=== PATIENT | male | born 1960 | race Caucasian/White ===

== ENCOUNTER → 2021-01-27 | Outpatient (CLI) | payer OTHER ==
--- NOTE | 2021-01-27 17:01 | Diagnostic Imaging Report ---
INDICATION: Pneumonia with cough. EXAMINATION: Chest, PA and lateral views. FINDINGS: The lungs are well-aerated and clear. The heart is not enlarged. No pulmonary edema or hilar adenopathy. No pneumothorax or pleural effusion. No bony abnormalities. IMPRESSION: Normal chest. Dictated by: Dictated on workstation # [id number]
== END ==
LOC: LAB FS 11:08
PROVIDERS: ATTEND Emergency Medicine
DX: J12.9 Viral pneumonia, unspecified (principal)
CPT/HCPCS: 71046

== ENCOUNTER 2021-05-18 22:42 | Emergency (ER) | payer OTHER ==
[~2021-05-18] VITALS: Ht 178 cm; Wt 111.0 kg
--- OUTSIDE RECORDS SUMMARY | 2021-05-18 22:46 | XMS REPORT | Clinical Summary ---
Author Author [facility] Organization [facility] Address Unknown Phone Unavailable Care Team Providers Care Bottom Sander Name Role Phone Jonn Mcgarry MD PCP Allergies No known active allergies Medications End Date Status Medication Sig Dispensed Refills Start Date Active ALPRAZolam (XANAX) 2 MG Take 1 mg by 0 tablet mouth 3 (three) times a day. Active atenolol (TENORMIN) 25 MG Take 25 mg by 0 tablet mouth 2 (two) times a day. Active montelukast (SINGULAIR) Take 10 mg by 0 10 mg tablet mouth daily. Active budesonide-formoteroL Inhale 1 puff 0 (SYMBICORT) 160-4.5 2 (two) times mcg/actuation inhaler a day. Active fluticasone propionate Use 2 sprays 0 (FLONASE) 50 in each mcg/actuation nasal spray nostril daily. Active ascorbic acid (VITAMIN C) Take 500 mg 0 500 mg tablet by mouth 2 (two) times a day. Active cholecalciferol, vitamin Take 10,000 0 D3, (VITAMIN D3) 125 mcg Units by (5,000 unit) Tab mouth 2 (two) times a day. Active Problems Problem Noted Date Hypoxemia 02/02/2021 Last Assessment & Plan: Formatting of this note might be differ ent from the original. supportive care wean O2 as tolerated Pneumonia due to COVID-19 virus 02/02/2021 Last Assessment & Plan: Formatting of this note might be differ ent from the original. - started decadron / remdesivir 02/02 - does not qualify for tocilizumab - encouraged proning - on oxygen increase requirement with a mbulation up to 7 L 02/08/2020 - CTA chest negative for PE - prn inhalers - continue monitoring - pt w/ multiple risk factors and remains at risk for acute worsening and resp failure 2/2 co vid pna - Once O2 requirement trending down can likely dc on home O2 after exercise oximetry Anxiety 02/02/2021 Last Assessment & Plan: Formatting of this note might be differ ent from the original. - cont home xanax - lower dose due to r yeni status, follow -Continue current as needed dosing Syncope 10/05/2016 Essential hypertension 10/05/2016 Last Assessment & Plan: Formatting of this note might be differ ent from the original. - cont home atenolol Family History Medical History Relation Name Comments ALS Father Colon cancer Father Heart disease Mother Relation Name Status Comments Father Mother Alive Social History Date Tobacco Use Types Packs/Day Years Used Never Smoker Smokeless Tobacco: Never Used Comments Alcohol Use Standard Drinks/Week No 0 (1 standard drink = 0.6 o z pure alcohol) Sex Assigned at Date Recorded Not on file Last Filed Vital Signs Reading Time Taken Comments Vital Sign 128/75 02/09/2021 11:04 AM CDT Blood Pressure 55 02/09/2021 11:04 AM CDT Pulse 36.7 C (98.1 F) 02/09/2021 11:04 AM CDT Temperature 18 02/09/2021 7:54 AM CDT Respiratory Rate 93% 02/09/2021 11:04 AM CDT Oxygen Saturation - - Inhaled Oxygen Concentration 113.5 kg (250 lb 3.6 oz) 02/09/2021 6:00 AM CDT Weight 177.8 cm (5' 10") 02/02/2021 7:42 PM CDT Height 35.9 02/02/2021 7:42 PM CDT Body Mass Index Plan of Treatment Health Maintenance Due Date Last Done Comments Hepatitis C Screen 1960 Td/Tdap# 1960 COVID-19 Vaccine (1) 1971 Colorectal Screening via 2009 Colonoscopy Zoster Vaccine# (1 of 2) 2009 Influenza Vaccine (#1) 2021 Pneumococcal Vaccine: Aged Out No longer eligib le based on patient's age to Pediatrics (0 to 5 Years) complete this topic and At-Risk Patients (6 to 64 Years) Results Not on filefrom Last 3 Months Insurance Type Payer Benefit Subscriber ID Effective Phone Address Plan / Dates Group [facility]ERCIAL[facility]CONTRACTED [facility] [id number] 2020-P [address] COMM[address]CIAL resent [id number] [place] [address] [place] (Home) [place] [address] [address] Personal/F Self [address] [place] (Home) [place], [place] [address] [address] [place] Personal/F Self [address] [place] (Home) [place], [place] [address] Advance Directives For more information, please contact: [phone] 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
[2021-05-18 23:24] LABS: BILIRUBIN,URINE NEGATIVE (NEGATIVE); CLARITY,URINE CLEAR; COLOR,URINE YELLOW; GLUCOSE, URINE (UA) NEGATIVE (NEGATIVE); KETONES,URINE NEGATIVE (NEGATIVE); LEUKOCYTE ESTERASE ,URINE NEGATIVE (NEGATIVE); NITRITE,URINE NEGATIVE (NEGATIVE); PROTEIN,URINE 2+ (NEGATIVE)
[2021-05-18 23:33] LABS: BACTERIA,URINE TRACE /HPF; RBC,URINE >100 /HPF; SQUAMOUS EPITHELIAL CELL,UR 0-2 /HPF; WBC,URINE 0-2 /HPF
--- NOTE | 2021-05-18 23:38 | ED GU-Male ---
General Chief Complaint: - Reproductive Stated Complaint: UNABLE TO URINATE Nursing Triage Note: PT AMB TO ED WITH C/O DIFFICULTY URINATING. PT REPORTS HE HAS HAD BURNING WHILE URINATING FOR THE LAST WEEK OR TWO, AND HAS BEEN UNABLE TO EMPTY HIS BLADDER SINCE 1400 TODAY. REPORTS PAIN /10 AND DESCRIBES IT PRESSURE IN BLADDER. REPORTS HAVING HX OF ENLARGED PROSTATE IN HIS LATE TEENS/EARLY 20S. Source: patient Exam Limitations: no limitations History of Present Illness Date Seen by Provider: May 18, 2021 Time Seen by Provider: 23:10 Initial Comments Patient ER by private conveyance from home at [place] with chief complaint that since about 2 in the afternoon he has had difficulty urinating or emptying his bladder. He gets small amounts of urine out. It has been progressively getting worse for the past week or 2. He has a history of prostatitis in his early 20s. He does not take Flomax or similar medications for prostate now. He does not follow with urologist. No uroscopy. No blood clots. No fevers chills nausea vomiting. Fullness and pressure in his suprapubic region Allergies and Home Medications Allergies Coded Allergies: No Known Drug Allergies (Unverified , 05/18/21) Patient Home Medication List Home Medication List Reviewed: Yes Review of Systems Review of Systems Constitutional: No chills, No fever EENTM: No ear discharge, No ear pain Respiratory: No cough, No short of breath Cardiovascular: No chest pain, No edema Gastrointestinal: see HPI, abdominal pain; No constipation, No diarrhea, No nausea Genitourinary: see HPI, frequency, pain Musculoskeletal: No back pain, No joint pain All Other Systemes Reviewed Negative Unless Noted: Yes Past Ldhlngn-Ucdvof-Nothjf Hx Patient Social History Tobacco Use?: No Use of E-Cig and/or Vaping dev: No Substance use?: No Pt feels they are or have been: No Immunizations Up To Date Influenza Vaccine Up-to-Date: No; Not Current First/Initial COVID19 Vaccinat: N/A Past Medical History Surgery/Hospitalization HX: HTN Physical Exam Vital Signs Vital Signs - First Documented 05/18/21 22:55 Temp 36.1 Pulse 75 Resp 18 B/P (MAP) 135/96 (109) Pulse Ox 97 O2 Delivery Room Air Capillary Refill : Less Than 3 Seconds Height, Weight, BMI Height: '" Weight: lbs. oz. kg; 35.00 BMI Method: General Appearance: WD/WN, mild distress HEENT: PERRL/EOMI, pharynx normal Neck: full range of motion, normal inspection Cardiovascular: normal peripheral pulses, regular rate, rhythm Respiratory: lungs clear, no respiratory distress, no accessory muscle use Gastrointestinal: normal bowel sounds, soft, tenderness (Mild suprapubic distention and fullness.) Extremities: normal range of motion, non-tender, normal capillary refill Neurologic/Psychiatric: alert, normal mood/affect, oriented x 3 Skin: normal color, warm/dry Progress/Results/Core Measures Suspected Sepsis SIRS Temperature: Pulse: 75 Respiratory Rate: 18 Laboratory Tests 05/19/21 00:05: White Blood Count 11.4H Blood Pressure 135 /96 Mean: 109 Laboratory Tests 05/19/21 00:05: Creatinine 1.25, Platelet Count 243 Results/Orders Lab Results Laboratory Tests Test 05/18/21 23:00 05/19/21 00:05 Range/Units Urine Color YELLOW Urine Clarity CLEAR Urine pH 6.0 5-9 Urine Specific Rhodes >=1.030 1.016-1.022 Urine Protein 2+ H NEGATIVE Urine Glucose (UA) NEGATIVE NEGATIVE Urine Ketones NEGATIVE NEGATIVE Urine Nitrite NEGATIVE NEGATIVE Urine Bilirubin NEGATIVE NEGATIVE Urine Urobilinogen 0.2 < = 1.0 MG/DL Urine Leukocyte Esterase NEGATIVE NEGATIVE Urine RBC (Auto) 3+ H NEGATIVE Urine RBC >100 H /HPF Urine WBC 0-2 /HPF Urine Squamous Epithelial Cells 0-2 /HPF Urine Crystals NONE /LPF Urine Bacteria TRACE /HPF Urine Casts NONE /LPF Urine Mucus NEGATIVE /LPF Urine Culture Indicated NO White Blood Count 11.4 H 4.3-11.0 10^3/uL Red Blood Count 5.06 4.30-5.52 10^6/uL Hemoglobin 14.9 13.3-17.7 g/dL Hematocrit 43 40-54 % Mean Corpuscular Volume 85 80-99 fL Mean Corpuscular Hemoglobin 29 25-34 pg Mean Corpuscular Hemoglobin Concent 35 32-36 g/dL Red Cell Distribution Width 13.2 10.0-14.5 % Platelet Count 243 130-400 10^3/uL Mean Platelet Volume 8.5 L 9.0-12.2 fL Immature Granulocyte % (Auto) 0 % Neutrophils (%) (Auto) 66 42-75 % Lymphocytes (%) (Auto) 23 12-44 % Monocytes (%) (Auto) 8 0-12 % Eosinophils (%) (Auto) 2 0-10 % Basophils (%) (Auto) 1 0-10 % Neutrophils # (Auto) 7.6 1.8-7.8 10^3/uL Lymphocytes # (Auto) 2.6 1.0-4.0 10^3/uL Monocytes # (Auto) 0.9 0.0-1.0 10^3/uL Eosinophils # (Auto) 0.2 0.0-0.3 10^3/uL Basophils # (Auto) 0.1 0.0-0.1 10^3/uL Immature Granulocyte # (Auto) 0.0 0.0-0.1 10^3/uL Sodium Level 138 135-145 MMOL/L Potassium Level 3.7 3.6-5.0 MMOL/L Chloride Level 103 98-107 MMOL/L Carbon Dioxide Level 25 21-32 MMOL/L Anion Gap 10 5-14 MMOL/L Blood Urea Nitrogen 17 7-18 MG/DL Creatinine 1.25 0.60-1.30 MG/DL Estimat Glomerular Filtration Rate 59 BUN/Creatinine Ratio 14 Glucose Level 112 H 70-105 MG/DL Calcium Level 9.7 8.5-10.1 MG/DL My Orders Orders - SHAYLEE OLGUIN Ua Culture If Indicated (05/18/21 23:13) Catheter(Urinary) Insert & Ass 03,15 (05/18/21 23:13) Bladder Scan (05/18/21 23:47) Ceftriaxone 1 Gm Pre-Mix (Rocephin 1 Gm (05/19/21 00:00) Cbc With Automated Diff (05/19/21 00:00) Basic Metabolic Panel (05/19/21 00:00) Medications Given in ED Current Medications Medications Dose Ordered Sig/Soha Route Start Time Stop Time Status Last Admin Dose Admin Ceftriaxone Sodium/Dextrose 50 ml @ 100 mls/hr ONCE ONCE IV 05/19/21 00:00 05/19/21 00:29 DC 05/19/21 00:10 100 MLS/HR Vital Signs/I&O 05/18/21 22:55 Temp 36.1 Pulse 75 Resp 18 B/P (MAP) 135/96 (109) Pulse Ox 97 O2 Delivery Room Air Capillary Refill : Less Than 3 Seconds Blood Pressure Mean: 109 Progress Note #1: Time: 23:37 Progress Note We will start the patient on Flomax put a Xie catheter in and get a urine sample back. We will treat with antibiotics if indicated. Have him follow-up with urology in 1 to 2 weeks Progress Note #2: Time: 01:01 Progress Note 20 cc of urine returned. So we collected some labs. Kidney function seems okay. Gave him some fluids and Rocephin as well as a dose of Flomax. Discussed taking the Xie catheter out and treating prostatitis and the patient is okay with this plan. Return precautions were given. Follow-up with urology Departure Impression Primary Impression: Urinary retention Additional Impression: Prostatitis Qualified Codes: N41.0 - Acute prostatitis Disposition: HOME, SELF-CARE Condition: Stable Departure-Patient Inst. Decision time for Depature: 00:53 Referrals: ERNESTO RASHID DO (PCP/Family) Primary Care Physician NEHA SALMON MD Patient Instructions: Urinary Retention (DC), How to Care for Your Xie Catheter, Male Add. Discharge Instructions: Drink plenty of fluids to help flush your kidneys out. Call Dr. Salmon in the morning and request a follow-up appointment in the next 1 to 2 weeks. Flomax 1 capsule at nighttime. Cefdinir 300 mg Twice a day for 10 days. All discharge instructions reviewed with patient and/or family. Voiced understanding. Scripts Tamsulosin HCl (Flomax) 0.4 Mg Cap 0.4 MG PO HS, #14 CAP 0 Refills Prov: SHAYLEE OLGUIN 05/19/21 Cefdinir (Cefdinir) 300 Mg Capsule 300 MG PO BID for 10 Days, #20 CAP 0 Refills Prov: SHAYLEE OLGUIN 05/19/21 Copy Copies To 1: ERNESTO RASHID DO; NEHA SALMON MD, TITUS J May 18, 2021 23:38
[2021-05-19] MEDS ORDERED: cefTRIAXone 1 GM PRE-MIX 50 ML IV ONE
[2021-05-19 00:18] LABS: BASOPHILS # (AUTO) 0.1 10^3/uL (0.0-0.1); BASOPHILS % (AUTO) 1 % (0-10); EOSINOPHILS # (AUTO) 0.2 10^3/uL (0.0-0.3); EOSINOPHILS % (AUTO) 2 % (0-10); HEMATOCRIT 43 % (40-54); HEMOGLOBIN 14.9 g/dL (13.3-17.7); LYMPHOCYTES # (AUTO) 2.6 10^3/uL (1.0-4.0); LYMPHOCYTES % (AUTO) 23 % (12-44); MEAN CORPUSCULAR HEMOGLOBIN 29 pg (25-34); MEAN CORPUSCULAR HGB CONC 35 g/dL (32-36); MEAN CORPUSCULAR VOLUME 85 fL (80-99); MEAN PLATELET VOLUME 8.5 fL (9.0-12.2); MONOCYTES # (AUTO) 0.9 10^3/uL (0.0-1.0); MONOCYTES % (AUTO) 8 % (0-12); NEUTROPHILS # (AUTO) 7.6 10^3/uL (1.8-7.8); NEUTROPHILS % (AUTO) 66 % (42-75); PLATELET COUNT 243 10^3/uL (130-400); WHITE BLOOD COUNT 11.4 10^3/uL (4.3-11.0)
[2021-05-19 00:33] LABS: POTASSIUM 3.7 MMOL/L (3.6-5.0)
[2021-05-19 00:34] LABS: CALCIUM 9.7 MG/DL (8.5-10.1)
[2021-05-19 00:39] LABS: CREATININE SERUM 1.25 MG/DL (0.60-1.30)
[2021-05-19] MEDS ORDERED: CEFD300C3 PO (01:00)
[2021-05-19] MEDS ORDERED: TMSL.4C PO (01:00)
[2021-05-19] MEDS ORDERED: TAMSULOSIN 0.4 MG (FLOMAX) CAP PO ONE ×2 (01:19→18:00)
[2021-05-19 01:26] VITALS: BP 129/86
== END 2021-05-19 01:26 | disposition home or self-care (01) ==
LOC: EDUNIT# 22:42 → ER 22:43
DX: R33.9 Retention of urine, unspecified (principal); N41.9 Inflammatory disease of prostate, unspecified; I10 Essential (primary) hypertension
CPT/HCPCS: 36415; 51702; 80048; 81000; 85025